=== PATIENT | male | born 1965 | race Caucasian/White ===

== ENCOUNTER 2016-07-27 09:53 | Observation (INO) | payer OTHER ==
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
[2016-07-27] MEDS ORDERED: HYDROmorphONE/DILAUDID 1 MG/ML SYR IVP ONE (10:54)
[2016-07-27] MEDS ORDERED: ceFAZolin 2 GM/DEXTROSE 100 ML IV ONE (12:48)
[2016-07-27] MEDS ORDERED: DEXAMETHASONE 4 MG/ML VIAL IVP ONE (13:17)
[2016-07-27] MEDS ORDERED: ACETAMINOPHEN 325 MG TAB PO ONE (13:17)
[2016-07-27] MEDS ORDERED: FAMOTIDINE 20 MG TAB PO ONE (13:17)
[2016-07-27] MEDS ORDERED: HYDROmorphONE/DILAUDID 1 MG/ML SYR IVP PRN (13:19)
[2016-07-27] MEDS ORDERED: LR 1,000 ML IV SCH (13:30)
[2016-07-27] MEDS ORDERED: HYDROmorphONE/DILAUDID 1 MG/ML SYR ONE (13:33)
[2016-07-27] MEDS ORDERED: BACITRACIN 50,000 UNITS/10 ML SYR IRR ONE (13:41)
[2016-07-27] MEDS ORDERED: POLYMYXIN B SULFATE 500,000 UNIT/10 ML SYR IRR ONE (13:41)
[2016-07-27] MEDS ORDERED: MIDAZOLAM 2 MG/2 ML VIAL IVP ONE (15:13)
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
[2016-07-27] MEDS ORDERED: fentaNYL 100 MCG/2 ML INJ ONE (15:19)
[2016-07-27] MEDS ORDERED: PROPOFOL/EMULSION 500 MG/50 ML BOTTLE IV ONE (15:19)
[2016-07-27] MEDS ORDERED: DEXAMETHASONE 4 MG/ML VIAL ONE ×2 (15:20→15:29)
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
[2016-07-27] MEDS ORDERED: ACETAMINOPHEN 325 MG TAB ONE (15:22)
[2016-07-27] MEDS ORDERED: LIDOCAINE 2% 5 ML SDV ONE (15:29)
[2016-07-27] MEDS ORDERED: ONDANSETRON 4 MG/2 ML VIAL ONE (15:30)
[2016-07-27] MEDS ORDERED: fentaNYL 100 MCG/2 ML INJ IVP PRN (15:53)
[2016-07-27] MEDS ORDERED: NALOXONE HCL 0.4 MG/ML INJ IVP PRN (15:53)
[2016-07-27] MEDS ORDERED: ONDANSETRON 4 MG/2 ML VIAL IVP PRN (15:53)
[2016-07-27] MEDS ORDERED: PROPOFOL 200 MG/20 ML VIAL ONE (16:05)
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
[2016-07-27 16:58] VITALS: RESP 16; O2SAT 96
[2016-07-27] MEDS ORDERED: HYDROCODONE/APAP 5/325 TAB PO PRN (17:00)
[2016-07-27 17:08] VITALS: BP 118/76; PULSE 54; TEMP 97.8
[2016-07-27] MEDS ORDERED: HYDROCODONE/APAP 5/325 TAB ONE (18:19)
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
--- NOTE | 2016-07-28 07:45 | POSTANESTH ---
Post Anesthetic Evaluation Cardiovascular Status: Normal, Stable Respiratory Status: Normal, Stable Level of Consciousness/Mental Status: Can Participate in Eval Pain Control: Adequate, Prn Tx Ordered Nausea/Vomiting Control: Adequate, Prn Tx Ordered Complications Possibly Related to Anesthesia: None Noted
== END 2016-07-27 18:42 | disposition home or self-care (01) ==
LOC: F3N 12:52
PROVIDERS: ADMIT Orthopaedic Surgery Sports Medicine; ATTEND Orthopaedic Surgery Sports Medicine
PROC: 0QC30ZZ Extirpation of Matter from Left Pelvic Bone, Open Approach (ICD-10-PCS; principal; 2016-07-27 14:00)
DX: S32.89XB Fracture of other parts of pelvis, initial encounter for open fracture (principal); V18.0XXA Pedal cycle driver injured in noncollision transport accident in nontraffic accident, initial encounter; Y93.55 Activity, bike riding
CPT/HCPCS: 96374; J0690; J1100; J1170; J2250; J2405; J2704; J3010